=== PATIENT | male | born 1950 | race Caucasian/White ===

== ENCOUNTER 2022-09-12 11:58 | Emergency (ER) | payer MEDICARE, OTHER ==
--- OUTSIDE RECORDS SUMMARY | 2022-09-12 12:01 | XMS REPORT | Continuity of Care Document ---
:1950 Author Organization [facility] t Address [address] [place] [address] [place] [id number] Care Team Providers Name Role Phone Ashli Marley MD Primary Care Physician BEATRIZ CANALES Attending Clinician Unavailable Van_T Attending Clinician Unavailable Feliciano Gale Attending Clinician [phone] Beatriz Canales MD Attending Clinician Doctor Unassigned, [place] Attending Clinician Unavailable Only, Adc Test Attending Clinician Unavailable ABBY YARBROUGH Attending Clinician Unavailable ASHLI MARLEY Attending Clinician Unavailable BEATRIZ CANALES Admitting Clinician Unavailable Van_Lisa Admitting Clinician Unavailable Beatriz Canales MD Admitting Clinician Payers Payer Name Policy Type Policy Number Effective Date Expiration Date S christine MEDICARE PART A \T\ [id number] 2013 B 00:00:00 [facility] [id number] 2018 MEDICARE SUPPLEMENT 00:00:00 [facility] Capton [id number] 2022 (MEDICARE 00:00:00 REPLACEMENT HMO) MEDICARE B-[place]: [id number] 2013 NOVThe Grommet 00:00:00 [facility] [id number] 2020 OPTIONS (MEDICARE 00:00:00 SUPPLEMENT) Problems This patient has no known problems. Allergies, Adverse Reactions, Alerts Allergy Allergy Status Severity Reaction(s) Onset Inactive Treating Comm ents Source Name Type Date Date Clinician NO KNOWN Drug Active Univers ALLERGIE Class ity of S [facility] Social History Social Habit Start Date Stop Date Quantity Comments Source Exposure to Not sure [facility] SARS-CoV-2 (event) Medica l Branch Tobacco use and 2021-03-24 2021-03-24 Never used [facility] exposure 00:00:00 00:00:00 [facility] Sex Assigned At [birth year] [facility] 00:00:00 00:00:00 [facility] Smoking Status Start Date Stop Date Source Unknown if ever smoked [facility] Never Smoker [place] [facility] Medications Ordered Filled Start Stop Current Ordering Indication Dosage Frequency Signature Comments Components Source Medication Medication Date Date Medication? Clinician (SIG) Name Name ceftriaxone ceftriaxone 2020-06 No ceftriaxon [place] 1 gram 1 gram 08-06 e 1 gram [facility] solution solution 12:42: solution U rology for for 19 for injectionTa injectionTa injectionT ke 1 g by ke 1 g by rafa 1 g by injection injection injection route. route. route. amLODIPine 2020-06 Yes 10mg Take 10 mg U nivers 10 mg 0-01 by mouth ity of tablet 01:45: daily. [address] losartan 50 2020-06 Yes 50mg Take 50 mg Univers mg tablet 0-01 by mouth ity of 01:45: daily. [address] hydroCHLORO 2020-06 Yes 25mg Take 25 mg Univers thiazide 25 0-01 by mouth ity of mg tablet 01:45: daily. [address] folic 2020-06 Yes Take by Univers acid/multiv 0-01 mouth. ity of it-min/lute 01:45: [place] in ([place]ENTR[place] [address] [place] [address] ORAL) POTASSIUM 2020-06 Yes Take by Unive rs GLUCONATE 0-01 mouth. ity of ORAL 01:45: [address] simethicone Yes PRN, Univer s (GAS RELIEF 03-26 Starting ity of (SIMETHICON 17:25: on Wed [place] E[place] 40 00 03/26/21 at Medical mg/0.6 mL 1225, Branch drops Until Discontinu ed, Routine, Intra-op simethicone 2020- No PRN, Unive rs (GAS RELIEF 03-26 Starting ity of (SIMETHICON 17:25: 22:36 on Wed [place] as E)) 40 00 :34 03/26/21 at Medical mg/0.6 mL 1225, Branch drops Until Wed03/26/21 at 1736, Routine, Intra-op lactated 2020- No 1000mL at 42 Unive rs ringers IV 03-26 mL/hr, ity of infusion 16:15: 16:09 1,000 mL, [place] as 1,000 mL 00 :00 IV Medical Infusion, Branch ONCE, 1 dose, On Wed03/26/21 at 1115, Routine, DSU Pre-op lactated 2020- No 1000mL at 42 Unive rs ringers IV 03-26 mL/hr, ity of infusion 16:15: 16:09 1,000 mL, [place] as 1,000 mL 00 :00 IV Medical Infusion, Branch ONCE, 1 dose, On Wed03/26/21 at 1115, Routine, DSU Pre-op amLODIPine Yes 10mg Take 10 mg U nivers 10 mg 03-26 by mouth ity of tablet 15:36: daily. [address] losartan 50 0 Yes 50mg Take 50 mg Univers mg tablet 03-26 by mouth ity of 15:36: daily. [address] hydroCHLORO Yes 25mg Take 25 mg Univers thiazide 25 03-26 by mouth ity of mg tablet 15:36: daily. [address] folic 0 Yes Take by Univers acid/multiv 03-26 mouth. ity of it-min/lute 15:36: [place] in ([address] ORAL) P[facility]ASSIUM [facility] 03-26 mouth. ity of ORAL 15:36: [address] amLODIPine 0 Yes 10mg Take 10 mg U nivers 10 mg 03-26 by mouth ity of tablet 15:36: daily. [address] losartan 50 0 Yes 50mg Take 50 mg Univers mg tablet 03-26 by mouth ity of 15:36: daily. [address] hydroCHLORO Yes 25mg Take 25 mg Univers thiazide 25 - by mouth ity of mg tablet 15:36: daily. [address] folic Yes Take by Univers acid/multiv - mouth. ity of it-min/lute 15:36: [place] in ([address] ORAL) POTASSIUM Yes Take by Unive rs GLUCONATE 03-26 mouth. ity of ORAL 15:36: [address] hydroCHLORO Yes 25mg Take 25 mg Univers thiazide 25 - by mouth ity of mg tablet 12:55: daily. [address] folic Yes Take by Univers acid/multiv - mouth. ity of it-min/lute 12:55: [place] in ([address] ORAL) POTASSIUM Yes Take by Unive rs GLUCONATE 03-24 mouth. ity of ORAL 12:55: [address] hydroCHLORO Yes 25mg Take 25 mg Univers thiazide 25 - by mouth ity of mg tablet 12:55: daily. [address] folic Yes Take by Univers acid/multiv - mouth. ity of it-min/lute 12:55: [place] in ([address] ORAL) POTASSIUM Yes Take by Unive rs GLUCONATE 03-24 mouth. ity of ORAL 12:55: [address] amLODIPine Yes 10mg Take 10 mg U nivers 10 mg - by mouth ity of tablet 12:55: daily. [address] losartan 50 0 Yes 50mg Take 50 mg Univers mg tablet 03-24 by mouth ity of 12:55: daily. [address] amLODIPine 0 Yes 10mg Take 10 mg U nivers 10 mg - by mouth ity of tablet 12:55: daily. [address] losartan 50 0 Yes 50mg Take 50 mg Univers mg tablet - by mouth ity of 12:55: daily. [address] amlodipine amlodipine No amlodipine [place] 10 mg 10 mg 10 mg Metro tablet tablet tablet Urology cephalexin cephalexin No 1capsul Q8H cephalexin [place] 500 mg 500 mg e(s) 500 mg [facility] capsule capsule capsule Urolog y Take 1 Take 1 Take 1 capsule capsule capsule every 8 every 8 every 8 hours by hours by hours by oral route oral route oral route for 1 day. for 1 day. for 1 day. Cipro 500 Cipro 500 No 1 BID Cipro 500 [place] mg tablet mg tablet mg tablet [facility] Take 1 Take 1 Take 1 Urology tablet tablet tablet twice a day twice a day twice a by oral by oral day by route for 5 route for 5 oral route days. days. for 5 days. hydrochloro hydrochloro No hydrochlor [place] thiazide 25 thiazide 25 othiazide [facility] mg tablet mg tablet 25 mg Urol ogy tablet levofloxaci levofloxaci No levofloxac [place] n 500 mg n 500 mg in 500 mg Me tro tablet tablet tablet Urology losartan 50 losartan 50 No losartan [place] mg tablet mg tablet 50 mg Metr o tablet Urology Suprep Suprep No Suprep [place] Bowel Prep Bowel Prep Bowel Prep [facility] Kit 17.5 Kit 17.5 Kit 17.5 Uro logy gram-3.13 gram-3.13 gram-3.13 gram-1.6 gram-1.6 gram-1.6 gram oral gram oral gram oral solution solution solution zolpidem 5 zolpidem 5 No zolpidem 5 [facility] mg tablet mg tablet mg tablet [facility] amlodipine amlodipine No amlodipine [place] 10 mg 10 mg 10 mg [facility] tablet tablet tablet Urology ceftriaxone ceftriaxone No 1g ceftriaxon [place] 1 gram 1 gram e 1 gram [facility] solution solution solution Uro logy for for for injection injection injection Take 1 g by Take 1 g by Take 1 g injection injection by route. Dr. timmons. injection Nadya Nadya route. gave via iv gave via iv Nadya gave via iv cephalexin cephalexin No cephalexin [place] 500 mg 500 mg 500 mg [facility] capsule capsule capsule Urolog y Take 1 Take 1 Take 1 capsule capsule capsule every 8 every 8 every 8 hours by hours by hours by oral route oral route oral route for 1 day. for 1 day. for 1 day. Cipro 500 Cipro 500 No 1 BID Cipro 500 [facility] mg tablet mg tablet mg tablet [facility] Take 1 Take 1 Take 1 Urology tablet tablet tablet twice a day twice a day twice a by oral by oral day by route for 5 route for 5 oral route days. days. for 5 days. hydrochloro hydrochloro No hydrochlor [place] thiazide 25 thiazide 25 othiazide [facility] mg tablet mg tablet 25 mg Urol ogy tablet levofloxaci levofloxaci No levofloxac [place] n 500 mg n 500 mg in 500 mg Me tro tablet tablet tablet Urology losartan 50 losartan 50 No losartan [facility] mg tablet mg tablet 50 mg Metr o tablet Urology Suprep Suprep No Suprep [place] Bowel Prep Bowel Prep Bowel Prep [facility] Kit 17.5 Kit 17.5 Kit 17.5 Uro logy gram-3.13 gram-3.13 gram-3.13 gram-1.6 gram-1.6 gram-1.6 gram oral gram oral gram oral solution solution solution zolpidem 5 zolpidem 5 No zolpidem 5 [facility] mg tablet mg tablet mg tablet [facility] Vital Signs Vital Name Observation Time Observation Value Comments Source Height 2021-06-05 00:00:00 72 [in_i] [facility]rology BP Diastolic 2021-04-17 00:00:00 82 [facility] 2021-04-17 00:00:00 72 [in_i] [facility] Urology BMI (Body Mass 2021-04-17 00:00:00 27.8 kg/m2 [facility] [place] Index) Urology BP Systolic 2021-04-17 00:00:00 142 mm[Hg] [facility] Body Weight 2021-04-17 00:00:00 205 [lb_av] [facility] Systolic blood 2021-03-26 18:20:00 146 mm[Hg] Univer sity of pressure [facility] Diastolic blood 2021-03-26 18:20:00 80 mm[Hg] [facility] Heart rate 2021-03-26 18:20:00 58 /min [facility] Respiratory rate 2021-03-26 18:20:00 19 /min [facility] Oxygen saturation in 2021-03-26 18:20:00 98 /min [facility] Arterial blood by [facility] Pulse oximetry Branch Body temperature 2021-03-26 17:55:00 36.39 Iesha [facility] Body height 2021-03-24 17:45:00 182.9 cm [facility] Body weight 2021-03-24 17:45:[address] [facility] BMI 2021-03-24 17:45:00 28.07 kg/m2 [facility] Systolic blood 2021-03-26 18:20:00 146 mm[Hg] Univer sity of [facility] Diastolic blood 2021-03-26 18:20:00 80 mm[Hg] Unive rsity [facility] Heart rate 2021-03-26 18:20:00 58 /min [facility] Respiratory rate 2021-03-26 18:20:00 19 /min [facility] Oxygen saturation in 2021-03-26 18:20:00 98 /min [facility] Arterial blood by [facility] Pulse oximetry [place] Body temperature 2021-03-26 17:55:00 36.39 Iesha [facility] Body height 2021-03-24 17:45:00 182.9 cm [facility] Body weight 2021-03-24 17:45:00 93.895 kg [facility] BMI 2021-03-24 17:45:00 28.07 kg/m2 [facility] Procedures Procedure Date / Time Performing Clinician Source Performed COLONOSCOPY (ENDO) 2021-03-26 17:18:58 [facility] COLONOSCOPY (ENDO) 2021-03-26 17:18:58 [facility] COLONOSCOPY 2021-03-26 17:10:00 Beatriz Canales [facility] PATIENT QUESTIONNAIRE 2021-03-26 05:01:00 Doctor Unassigned, No [facility] COVID-19 (ID NOW RAPID 2021-03-25 14:02:00 Beatriz Canales [facility] TESTING) [facility] ASSIGNMENT OF BENEFITS 2021-03-25 13:49:27 Doctor Unassigned, No [facility] EXTERNAL PROVIDER 2021-03-21 05:01:00 Doctor Unassigned, No [facility] RECORDS [facility] Encounters Start End Encounter Admission Attending Care Care Encounter Source Date/Time Date/Time Type Type Clinicians Facility Department ID 2021-04-29 Outpatient [facility] [id number] Univers 01:11:46 BEATRIZ Barrett [facility] 2022-08-05 2022-08-05 Outpatient [facility] [id number] [facility] 00:00:00 00:00:00 [id number] Med[facility] l Group 2022-04-29 2022-04-29 Outpatient DMG DMG [id number] [facility] 00:00:00 00:00:00 [id number] Medica l Group 2021-06-10 2021-06-10 Outpatient Van_T [facility] [id number] [place] 11:39:00 11:39:00 [id number] [facility] 2021-06-05 2021-06-05 Outpatient Van_T [facility] [id number] [place] 11:44:00 11:44:00 [id number] [facility] 2021-06-05 2021-06-05 Outpatient [facility] [id number] 00:00:00 00:00:00 Constantine Ohara [id number] 2021-06-05 2021-06-05 Feliciano Fitch [facility] [place] - [id number] [place] 00:00:00 00:00:00 Lev Gale MD: [facility] [address] [facility] [place], Urology [facility], - [address] [place] [address] , Ph. 2021-04-22 2021-04-22 Outpatient Van_T [facility] [id number] [place] 12:38:00 12:38:00 [id number] [facility] 2021-04-17 2021-04-17 Outpatient Van_T [facility] [id number] [place] 06:54:00 06:54:00 [id number] [facility] 2021-04-17 2021-04-17 Outpatient Feliciano Gale [facility] [id number] 00:00:00 00:00:00 Constantine Ohara [id number] 2021-04-17 2021-04-17 Feliciano Fitch [facility] [place] - [id number] [place] 00:00:00 00:00:00 Lev Gale MD: [facility] [facility] REGGIE Flood, [place] [address] , Ph. 2021-04-16 2021-04-16 Outpatient Van_T [facility] [id number] [place] 12:14:00 12:14:00 [id number] [facility] 2021-04-15 2021-04-15 Outpatient Van_T [facility] [id number] [place] 03:52:00 03:52:00 [id number] [facility] 2021-04-04 2021-04-04 Outpatient Van_T [facility] [id number] [place] 12:34:00 12:34:00 [id number] [facility] 2021-03-26 2021-03-26 Surgery [facility] [id number] Univers 13:57:00 14:34:00 Beatriz barrett [id number] ity [id number] [id number] [facility] 020 Branch 2021-03-26 2021-03-26 [facility] [id number] Univers 10:45:00 13:45:00 Encounter Beatriz barrett [id number] [id number] [id number] [facility] 071 Branch 2021-03-26 2021-03-26 Orders Doctor FITCH [id number] 00:00:00 00:00:00 Only Unassigned, HERMELINDA [id number] [facility] [id number] [place] [id number] [place] [address] Branch 2021-03-25 2021-03-25 Outpatient R [facility] [id number] Univers 13:45:00 13:45:00 BEATRIZ Barrett o f [facility] 2021-03-25 2021-03-25 Laboratory Only, Adc Test [facility] [id number]. [id number] Univers 08:57:58 09:12:58 Only Beatriz Canales 350.1.1 3.10 [id number] [id number] [facility] 353 Branch 2021-03-25 2021-03-25 Orders Doctor CONSTANTINE [id number] Univers 00:00:00 00:00:00 Only Unassigned, HERMELINDA [id number] ity of [place] HOSPITAL [id number] [place] [id number] [facility] 009 Branch 2021-03-21 2021-03-21 Orders Doctor CONSTANTINE [id number] Univers 00:00:00 00:00:00 Only Unassigned, HERMELINDA [id number] ity of [place] HOSPITAL [id number] [place] [id number] [facility] 009 Branch 2020-07-13 2020-07-13 Outpatient R LINNEA [facility] [id number] Univers 12:40:00 12:40:00 ABBY cummins [facility] 2019-10-30 2019-10-30 [facility] [id number] Univers 15:45:00 15:45:00 ASHLI cummins [facility] Results This patient has no known results.
[2022-09-12 12:31] LABS: Urine Blood 3+ (Negative); Urine Glucose Negative (Negative); Urine Protein 2+ (Negative); Urine Specific Gravity 1.025 (1.005-1.030)
[2022-09-12 12:41] LABS: Absolute Lymphocytes (CBC) 1.2 K/uL (0.7-4.9); Hematocrit 42.7 % (39.6-49.0); Lymphocytes % 14.1 % (15.3-44.8); MCV 85.7 fL (80-100); MPV 7.7 fL (7.6-11.3); RBC Red Blood Cell Count 4.99 M/uL (4.33-5.43)
[2022-09-12 12:50] LABS: Urine Bacteria None Seen /HPF (<20); Urine Mucus Slight /HPF (None Seen); Urine RBC >50 /HPF (None Seen); Urine WBC Clump Occasional /HPF (None Seen)
[2022-09-12 13:02] LABS: Potassium 3.5 mEq/L (3.5-5.1)
--- NOTE | 2022-09-12 13:26 | RAD REPORT ---
EXAM DESCRIPTION: CT - Stone Protocol - 09/12/2022 1:00 pm CLINICAL HISTORY: Hematuria COMPARISON: 2020 TECHNIQUE: Computed axial tomography of the abdomen pelvis was obtained without oral or IV contrast. Lack of IV and oral contrast limits evaluation of solid organs, appendix, bowel, and vessels. Jeff l reformatted images were obtained and reviewed. All CT scans are performed using dose optimization technique as appropriate and may include automated exposure control or mA/KV adjustment according to patient size. FINDINGS: A 9.2 centimeter mass extends off of the left kidney without significant change. It contai ns calcification of an internal septa. Additional small bilateral renal cysts without significant change No hydronephrosis. No ureteral calculus. No bladder calculus. The bladder wall is mildly thickened. S tranding is present within adjacent fat. Prostate gland is moderately enlarged and abuts the bladder. Seminal vesicles appear unremarkable. No lymphadenopathy visualized Hepatic cyst unchanged paragraphs spleen, pancreas and adrenals appear grossly normal No evidence diverticulitis Small inguinal hernias. Small umbilical hernia IMPRESSION: No obstructing genitourinary calculus Thickened bladder wall may be secondary to bilobed obstruction or inflammation. Stranding within the fat adjacent to the bladder probably indicating inflammation
--- NOTE | 2022-09-12 13:39 | EDPHYS ---
Physician Documentation [facility] Name: Toan Patel Age: 71 yrs Sex: Male : 1950 Arrival Date: 09/12/2022 Time: 12:02 Bed 14 Private MD: ED Physician Jori Kinney Historical: - Allergies: 09/12 13:01 No Known Allergies; ll1 - PMHx: 13:01 Hypertensive disorder; ll1 - PSHx: 13:01 prostate CA with prostate surgery; skin CA removed; ll1 - Immunization history:: Client reports receiving the 2nd dose of the Covid vaccine. - Social history:: Smoking status: Patient denies any tobacco usage or history of. Patient uses. Vital Signs: 12:05 BP 160 / 85; Pulse 68; Resp 18; Temp 97.8; Pulse Ox 98% ; Weight 93.89 kg; Height 6 ft. ll1 0 in. ; Pain 0/10; 12:15 BP 142 / 77; Pulse 67; Resp 16; Pulse Ox 99% on R/A; eh3 12:05 Body Mass Index 28.07 (93.89 kg, 182.88 cm) ll1 12:05 Pain Scale: Adult ll1 MDM: 12:03 Patient medically screened. kb 09/12 12:10 Order name: IV Start; Complete Time: 12:33 kb 09/12 12:09 Order name: Urine Dipstick-Ancillary (obtain specimen); Complete Time: 12:33 kb 09/12 12:09 Order name: CBC with Diff; Complete Time: 12:42 kb 09/12 12:09 Order name: Urine Microscopic Only; Complete Time: 12:53 kb 09/12 12:09 Order name: Basic Metabolic Panel; Complete Time: 13:14 kb 09/12 12:10 Order name: CT Stone Protocol; Complete Time: 13:35 kb 09/12 12:31 Order name: Urine Dipstick-Ancillary; Complete Time: 12:42 EDMS 09/12 12:53 Order name: Urine Culture EDMS Administered Medications: No medications were administered Disposition Summary: 09/12/22 13:38 Discharge Ordered Location: Home kb Condition: Stable kb Diagnosis - Acute cystitis kb Followup: kb - With: Emergency Department - When: As needed - Reason: Worsening of condition Followup: kb - With: Private Physician - When: 2 - 3 days - Reason: Recheck today's complaints, Continuance of care, Re-evaluation by your physician Discharge Instructions: - Discharge Summary Sheet kb - Urinary Tract Infection, Adult, [id number] kb Forms: - Medication Reconciliation Form kb - Thank You Letter kb - Antibiotic Education kb - Prescription Opioid Use kb Prescriptions: - cefpodoxime 100 mg Oral Tablet - take 1 tablet by ORAL route every 12 hours for 10 days take with food; 20 kb tablet; Refills: 0, Product Selection Permitted Signatures: Dispatcher [employer] EDBrenna Townsend, WELDER 2ND SHIFT-C WELDER 2ND SHIFT-Lilly Gonzalez, RN RN ll1
--- NOTE | 2022-09-12 13:39 | ER ---
Nurse's Notes [facility] Name: Toan Patel Age: 71 yrs Sex: Male : 1950 Arrival Date: 09/12/2022 Time: 12:02 Bed 14 Private MD: Diagnosis: Acute cystitis Presentation: 09/12 12:03 Chief complaint: Patient states: Dysuria for 1 week. Blood in urine for 2 days. ll1 12:05 Initial Sepsis Screen: Does the patient meet any 2 criteria? No. Patient's initial ll1 sepsis screen is negative. Does the patient have a suspected source of infection? Yes: Dysuria/Frequency/Urgency/UTI. Onset of symptoms was September 05, 2022. 12:58 Coronavirus screen: Vaccine status: Patient reports receiving the 2nd dose of the covid ll1 vaccine. Client denies travel out of the [place] in the last 14 days. At this time, the client does not indicate any symptoms associated with coronavirus-19. Ebola Screen: Patient denies travel to an Ebola-affected area in the 21 days before illness onset. Risk Assessment: Do you want to hurt yourself or someone else? Patient reports no desire to harm self or others. 12:58 Method Of Arrival: Ambulatory ll1 12:58 Acuity: INEZ 3 ll1 Triage Assessment: 12:04 General: Appears in no apparent distress. Behavior is calm, cooperative, appropriate ll1 for age. Pain: Denies pain. : Reports burning with urination, bloody urine. Historical: - Allergies: 13:01 No Known Allergies; ll1 - PMHx: 13:01 Hypertensive disorder; ll1 - PSHx: 13:01 prostate CA with prostate surgery; skin CA removed; ll1 - Immunization history:: Client reports receiving the 2nd dose of the Covid vaccine. - Social history:: Smoking status: Patient denies any tobacco usage or history of. Patient uses. Screenin:15 [facility] ED Fall Risk Assessment (Adult) Score/Fall Risk Level 0 - 2 = Low Risk. Abuse eh3 screen: Denies threats or abuse. Denies injuries from another. Nutritional screening: No deficits noted. Tuberculosis screening: No symptoms or risk factors identified. Assessment: 12:15 General: Appears in no apparent distress. uncomfortable, Behavior is calm, cooperative, eh3 appropriate for age. Pain: Denies pain. Neuro: Level of Consciousness is awake, alert, obeys commands, Oriented to person, place, time, situation. Cardiovascular: Capillary refill < 3 seconds Patient's skin is warm and dry. Respiratory: Airway is patent Respiratory effort is even, unlabored, Respiratory pattern is regular, symmetrical. GI: Abdomen is round non-distended. : Reports burning with urination, since 2 weeks ago, and blood clots with urination. EENT: No signs and/or symptoms were reported regarding the EENT system. Derm: Skin is pink, warm \T\ dry. Musculoskeletal: No signs and/or symptoms reported regarding the musculoskeletal system. Vital Signs: 12:05 BP 160 / 85; Pulse 68; Resp 18; Temp 97.8; Pulse Ox 98% ; Weight 93.89 kg; Height 6 ft. ll1 0 in. ; Pain 0/10; 12:15 BP 142 / 77; Pulse 67; Resp 16; Pulse Ox 99% on R/A; eh3 12:05 Body Mass Index 28.07 (93.89 kg, 182.88 cm) ll1 12:05 Pain Scale: Adult ll1 ED Course: 12:02 Patient arrived in ED. am2 12:03 Bren[facility]-C [facility] kb 12:03 Jori Kinney MD is Attending Physician. kb 12:08 Peri Espinoza, RN is Primary Nurse. eh3 12:15 Patient has correct armband on for positive identification. Bed in low position. Call eh3 light in reach. Side rails up X2. Pulse ox on. NIBP on. Door closed. Noise minimized. 12:58 Triage completed. ll1 13:01 CT Stone Protocol In Process Unspecified. EDMS Administered Medications: No medications were administered Outcome: 13:38 Discharge ordered by . kb Signatures: Dispatcher [employer] EDMS Brenna Pearson FNP-C FNP-Ckb Moreno, Amanda am2 Lilly Martini, RN RN 1 Peri Espinoza, RN RN 3
[2022-09-12] MEDS ORDERED: CEFTRIAXONE 1000 MG/VIAL ONE (13:46)
[2022-09-12] MEDS ORDERED: NA CHLORIDE 0.9% 0 ML ONE (13:46)
[2022-09-12] MEDS ORDERED: NA CHLORIDE 0.9% 50 ML ONE (13:48)
[2022-09-12 14:12] VITALS: TEMP 97.8
[2022-09-12 14:13] VITALS: BP 142/77; O2SAT 99
== END 2022-09-12 14:04 | disposition home or self-care (01) ==
LOC: ER 11:58
DX: N30.00 Acute cystitis without hematuria (principal); I10 Essential (primary) hypertension; Z85.46 Personal history of malignant neoplasm of prostate
CPT/HCPCS: 36415; 74176; 76377; 80048; 81003; 81015; 85025; 87077; 87086; 87088; 87186; 96365; 99284